=== PATIENT | male | born 1955 | race Caucasian/White ===

== ENCOUNTER 2019-02-17 17:14 | Inpatient (IN) | payer MEDICARE, OTHER ==
[2019-02-17] MEDS ORDERED: levETIRAcetam IV 500 MG in SODIUM CHLORIDE 0.9% 100 ML IVPB STA (17:39)
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
[2019-02-17] MEDS ORDERED: SODIUM CHLORIDE 0.9% 1,000 ML IV ONE (17:40)
[2019-02-17 20:30] VITALS: BMI 29.7
[2019-02-17 20:54] LABS: INR 1.8 (<1.2); Prothrombin Time 17.9 sec (9.0-12.0)
[2019-02-17] MEDS ORDERED: WARFARIN 1 MG TAB PO SCH (21:00)
[2019-02-17] MEDS ORDERED: WARFARIN 3 MG TAB PO SCH (21:00)
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
[2019-02-17 22:13] LABS: HCT 35.1 % (39.0-53.0); HGB 11.3 gm/dL (13.0-17.5); Hypochromasia Slight; MCHC 32.3 g/dL (31.0-37.0); MCV 86.7 fL (80.0-100.0); Mean Platelet Volume 7.6; Platelet Count 479 k/uL (150-450); RBC 4.05 m/uL (4.30-5.90); RDW 14.5 % (11.5-15.5); WBC 12.2 k/uL (3.8-10.6)
[2019-02-17 22:42] LABS: ALT 21 U/L (21-72); AST 23 U/L (17-59); African American GFR (CKD) >90 (>60 ml/min/1.73 sqM); Albumin 3.6 g/dL (3.5-5.0); Alkaline Phosphatase 80 U/L (38-126); Anion Gap 9 mmol/L; Blood Urea Nitrogen 12 mg/dL (9-20); Calcium 8.8 mg/dL (8.4-10.2); Carbon Dioxide 27 mmol/L (22-30); Chloride 105 mmol/L (98-107); Glucose 121 mg/dL (74-99); Potassium 3.6 mmol/L (3.5-5.1); Sodium 141 mmol/L (137-145); Total Bilirubin 0.7 mg/dL (0.2-1.3); Total Protein 6.3 g/dL (6.3-8.2)
[2019-02-17] MEDS: NITROFURANTOIN MONOHYD/M-CRYST 100 MG CAP PO SCH (23:14)
[2019-02-17] MEDS: METOPROLOL TARTRATE 25 MG TAB PO SCH (23:14)
[2019-02-17] MEDS: GABAPENTIN 100 MG CAP PO SCH (23:14)
[2019-02-18 08:15] LABS: INR 1.9 (<1.2); Prothrombin Time 18.3 sec (9.0-12.0)
[2019-02-18] MEDS: GABAPENTIN 100 MG CAP PO SCH ×2 (08:50→17:10)
[2019-02-18] MEDS: METOPROLOL TARTRATE 25 MG TAB PO SCH (08:50)
[2019-02-18] MEDS: NITROFURANTOIN MONOHYD/M-CRYST 100 MG CAP PO SCH (08:50)
[2019-02-18] MEDS ORDERED: LISINOPRIL 20 MG TAB PO SCH (09:00)
--- NOTE | 2019-02-18 13:05 | MR ---
EXAMINATION TYPE: MR angio head wo con DATE OF EXAM: 02/18/2019 COMPARISON: None HISTORY: recurrent seziures CONTRAST: None TECHNIQUE: Multiplanar multiecho imaging on a 3.0 Sandra magnet is performed through the [place]. 3-D wijz-pb-clfzae imaging is performed. Source images are reviewed on the computer in the axi al plane. Reconstructed images rotating on the computer are reviewed. FINDINGS: The internal carotid arteries bifurcate normally into A1 and M1 segments. The A2 segments are normal. Middle cerebral artery branches are normal. Anterior communicating artery is patent. The right posterior communicating artery is patent. The left posterior communicating artery is absent. Vertebrobasilar arteries within the vsjwz-sf-blfb are normal. Posterior cerebral vasculature is norm al. No suspicious aneurysm or aneurysmal dilatation is evident. No obstructions are identified. No significant flow-limiting stenosis is evident. IMPRESSIONS: 1. NORMAL MRA [place].
[2019-02-18 14:42] VITALS: BP 130/72; PULSE 71; RESP 16; TEMP 98.1
[2019-02-18] MEDS ORDERED: DIVALPROEX 500 MG TABLET.DR PO SCH (21:00)
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
== END 2019-02-18 17:31 | disposition home or self-care (01) | DRG 101 ==
LOC: EC 17:14 → 4SSUR 17:40
PROVIDERS: ADMIT Hospitalist; ATTEND Hospitalist
DX: G40.409 Other generalized epilepsy and epileptic syndromes, not intractable, without status epilepticus (principal); G82.20 Paraplegia, unspecified; T14.90XS Injury, unspecified, sequela; V89.2XXS Person injured in unspecified motor-vehicle accident, traffic, sequela; Z87.820 Personal history of traumatic brain injury; I10 Essential (primary) hypertension; Z79.01 Long term (current) use of anticoagulants; Z79.899 Other long term (current) drug therapy; Z82.49 Family history of ischemic heart disease and other diseases of the circulatory system; Z83.3 Family history of diabetes mellitus; Z86.711 Personal history of pulmonary embolism; Z86.718 Personal history of other venous thrombosis and embolism; Z87.440 Personal history of urinary (tract) infections; G62.9 Polyneuropathy, unspecified
CPT/HCPCS: 70544; 80053; 85027; 85610; 95816; 96365; 99284

== ENCOUNTER → 2019-03-17 | Outpatient (CLI) | payer MEDICARE, OTHER | END | disposition home or self-care (01) | LOC: LABWHC1 13:13 | PROVIDERS: ATTEND Psychiatry & Neurology Neurology | DX: R56.9 Unspecified convulsions (principal) | CPT/HCPCS: 36415; 80164 ==

== ENCOUNTER 2019-09-03 17:30 | Inpatient (IN) | payer MEDICARE, OTHER ==
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
[2019-09-03] MEDS ORDERED: NALOXONE 0.4 MG/ML 1 ML VIAL IV PRN (18:19)
[2019-09-03] MEDS ORDERED: HEPARIN SODIUM,PORCINE 10,000 UNIT/ML 1 ML VIAL IV ONE (18:20)
[2019-09-03] MEDS ORDERED: HEPARIN SODIUM,PORCINE 5,000 UNIT/ML 1 ML VIAL IV PRN (18:20)
[2019-09-03] MEDS ORDERED: SODIUM CHLORIDE 0.9% 1,000 ML IV SCH (18:30)
[2019-09-03] MEDS: HEPARIN SOD,PORK IN 0.45% NACL 25,000 UNIT in 0.45% NACL 1 250ML.BAG IV SCH (18:45)
[2019-09-03] MEDS ORDERED: METOPROLOL TARTRATE 25 MG TAB PO STA (19:03)
[2019-09-03 20:08] LABS: INR 2.9 (<1.2); Prothrombin Time 28.4 sec (9.0-12.0)
[2019-09-03 20:15] LABS: Partial Thromboplastin Time >200.0 sec (22.0-30.0)
[2019-09-03 20:27] LABS: HCT 43.1 % (39.0-53.0); HGB 14.1 gm/dL (13.0-17.5); MCH 29.7 pg (25.0-35.0); MCHC 32.7 g/dL (31.0-37.0); MCV 90.8 fL (80.0-100.0); Mean Platelet Volume 8.7; Platelet Count 174 k/uL (150-450); RBC 4.75 m/uL (4.30-5.90); RDW 14.2 % (11.5-15.5); WBC 8.4 k/uL (3.8-10.6)
[2019-09-03 20:51] LABS: Eosinophils # (M) 0.17 k/uL (0-0.7); Lymphocytes # (M) 2.94 k/uL (1.0-4.8); Monocytes # (M) 0.59 k/uL (0-1.0); Neutrophils % (M) 56 %; Nucleated Red Blood Cells 0 /100 WBC (0-0); Poikilocytosis (M) Present; Total Cells Counted 100
[2019-09-03 21:23] LABS: Glucose,Whole Blood 115 mg/dL (75-99)
[2019-09-03] MEDS ORDERED: ACETAMINOPHEN TAB 325 MG TAB PO PRN (23:27)
[2019-09-03] MEDS ORDERED: MAGNESIUM HYDROXIDE 2,400 MG/10 ML CUP PO PRN (23:27)
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
[2019-09-04] MEDS ORDERED: METOPROLOL TARTRATE 25 MG TAB PO SCH
[2019-09-04] MEDS ORDERED: LISINOPRIL 20 MG TAB PO SCH
[2019-09-04] MEDS: LISINOPRIL 20 MG TAB PO SCH ×2 (00:05→05:56)
[2019-09-04] MEDS: METOPROLOL TARTRATE 25 MG TAB PO SCH ×2 (00:05→07:18)
[2019-09-04] MEDS ORDERED: DIVALPROEX 500 MG TABLET.DR PO SCH (07:00)
[2019-09-04] MEDS: GABAPENTIN 100 MG CAP PO SCH ×2 (07:18→13:04)
[2019-09-04 07:20] LABS: Glucose,Whole Blood 97 mg/dL (75-99)
[2019-09-04 08:21] LABS: HCT 42.7 % (39.0-53.0); HGB 13.9 gm/dL (13.0-17.5); MCH 29.9 pg (25.0-35.0); MCHC 32.5 g/dL (31.0-37.0); MCV 91.8 fL (80.0-100.0); Mean Platelet Volume 8.4; Platelet Count 170 k/uL (150-450); RBC 4.66 m/uL (4.30-5.90); RDW 14.2 % (11.5-15.5); WBC 8.9 k/uL (3.8-10.6)
[2019-09-04 09:44] LABS: Eosinophils # (M) 0.09 k/uL (0-0.7); Lymphocytes # (M) 2.58 k/uL (1.0-4.8); Monocytes # (M) 0.89 k/uL (0-1.0); Neutrophils # (M) 5.34 k/uL (1.3-7.7); Neutrophils % (M) 60 %; Nucleated Red Blood Cells 0 /100 WBC (0-0); Total Cells Counted 100
[2019-09-04] MEDS: HEPARIN SOD,PORK IN 0.45% NACL 25,000 UNIT in 0.45% NACL 1 250ML.BAG IV SCH (10:41)
[2019-09-04 11:37] LABS: Glucose,Whole Blood 122 mg/dL (75-99)
[2019-09-04] MEDS ORDERED: hydrALAZINE HCL 25 MG TAB PO PRN (12:41)
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
[2019-09-04 14:32] VITALS: BP 156/66; PULSE 62; RESP 16; TEMP 98
[2019-09-04 15:15] LABS: INR 1.9 (<1.2); Prothrombin Time 18.6 sec (9.0-12.0)
[2019-09-04 15:33] LABS: Partial Thromboplastin Time 110.4 sec (22.0-30.0)
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
[2019-09-04] MEDS ORDERED: APIXABAN 5 MG TAB PO SCH (16:00)
[2019-09-04 16:29] LABS: Glucose,Whole Blood 95 mg/dL (75-99)
[2019-09-04] MEDS ORDERED: INSULIN ASPART (NovoLOG) 100 UNIT/ML VIAL SQ SCH (17:30)
[2019-09-04] MEDS ORDERED: WARFARIN 0.5 MG TAB PO SCH (21:00)
[2019-09-04] MEDS ORDERED: WARFARIN 3 MG TAB PO SCH (21:00)
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
== END 2019-09-04 17:50 | DRG 300 ==
LOC: EC 17:30 → 6NMEDSUR 19:39
PROVIDERS: ADMIT Internal Medicine; ATTEND Internal Medicine
DX: I82.431 Acute embolism and thrombosis of right popliteal vein (principal); D68.59 Other primary thrombophilia; G82.20 Paraplegia, unspecified; Z66 Do not resuscitate; G40.909 Epilepsy, unspecified, not intractable, without status epilepticus; I16.0 Hypertensive urgency; I10 Essential (primary) hypertension; F81.9 Developmental disorder of scholastic skills, unspecified; E11.42 Type 2 diabetes mellitus with diabetic polyneuropathy; S06.890S Other specified intracranial injury without loss of consciousness, sequela; Z79.01 Long term (current) use of anticoagulants; Z79.899 Other long term (current) drug therapy; Z82.49 Family history of ischemic heart disease and other diseases of the circulatory system; Z86.711 Personal history of pulmonary embolism; Z86.718 Personal history of other venous thrombosis and embolism; Z87.820 Personal history of traumatic brain injury; Z83.3 Family history of diabetes mellitus
CPT/HCPCS: 36415; 82272; 85025; 85610; 85730; 96365; 96366; 96376; 99285

== ENCOUNTER 2020-05-28 12:37 | Inpatient (IN) | payer MEDICARE, OTHER ==
[2020-05-28] MEDS ORDERED: NALOXONE 0.4 MG/ML 1 ML VIAL IV PRN (15:32)
--- NOTE | 2020-05-28 16:03 | XR ---
EXAMINATION TYPE: XR chest 1V portable DATE OF EXAM: 05/28/2020 COMPARISON: NONE HISTORY: Cough TECHNIQUE: Single view FINDINGS: There is no heart failure nor confluent pneumonic infiltrate. Heart size is normal. Costoph renic angles are clear. IMPRESSION: No active cardiopulmonary disease. Normal heart.
[2020-05-28 16:09] LABS: Basophils # (A) 0.2 k/uL (0-0.2); Basophils % (A) 2 %; Eosinophils % (A) 0 %; HCT 42.5 % (39.0-53.0); Lymphocytes % (A) 12 %; MCH 30.2 pg (25.0-35.0); MCHC 30.6 g/dL (31.0-37.0); MCV 98.5 fL (80.0-100.0); Mean Platelet Volume 7.8; Monocytes # (A) 0.8 k/uL (0-1.0); Monocytes % (A) 10 %; Neutrophils # (A) 5.6 k/uL (1.3-7.7); Neutrophils % (A) 72 %; Platelet Count 116 k/uL (150-450); RBC 4.31 m/uL (4.30-5.90); RDW 14.6 % (11.5-15.5); WBC 7.8 k/uL (3.8-10.6)
[2020-05-28 16:19] LABS: ALT 27 U/L (4-49); AST 46 U/L (17-59); African American GFR (CKD) >90 (>60 ml/min/1.73 sqM); Albumin 3.2 g/dL (3.5-5.0); Albumin/Globulin Ratio 1.2; Alkaline Phosphatase 51 U/L (38-126); Anion Gap 7 mmol/L; Blood Urea Nitrogen 20 mg/dL (9-20); Calcium 8.8 mg/dL (8.4-10.2); Carbon Dioxide 26 mmol/L (22-30); Chloride 103 mmol/L (98-107); Creatine Kinase 38 U/L (55-170); Globulin 2.6 g/dL; Glucose 87 mg/dL (74-99); Magnesium 1.6 mg/dL (1.6-2.3); Non-African American GFR(CKD) >90 (>60 ml/min/1.73 sqM); Potassium 4.7 mmol/L (3.5-5.1); Sodium 136 mmol/L (137-145); Total Bilirubin 0.9 mg/dL (0.2-1.3); Total Protein 5.8 g/dL (6.3-8.2)
[2020-05-28] MEDS: SODIUM CHLORIDE 0.9% 1,000 ML IV SCH (16:50)
[2020-05-28 16:58] LABS: Glucose,Whole Blood 87 mg/dL (75-99)
[2020-05-28] MEDS: INSULIN ASPART (NovoLOG) 100 UNIT/ML VIAL SQ SCH ×2 (17:01→21:41)
[2020-05-28 17:09] LABS: Appearance,Urine Cloudy (Clear); Bilirubin,Urine Negative (Negative); Blood,Urine Moderate (Negative); Calcium Oxalate Crystals,Urine Occasional /hpf; Color,Urine Yellow; Glucose,Urine (UA) Negative (Negative); Hyaline Casts,Urine 1 /lpf (0-2); Ketones,Urine 1+ (Negative); Leukocyte Esterase,Urine Moderate (Negative); Mucus,Urine Rare /hpf; Nitrite,Urine Negative (Negative); Protein,Urine 3+ (Negative); RBC,Urine >182 /hpf (0-5); Specific Gravity,Urine 1.031 (1.001-1.035); Squamous Epithelial Cell,Urine <1 /hpf (0-4); WBC,Urine 100 /hpf (0-5)
[2020-05-28] MEDS ORDERED: bisacodyL 10 MG SUPP RECTAL PRN (17:25)
[2020-05-28 18:09] LABS: C Reactive Protein 28.6 mg/L (<10.0)
--- NOTE | 2020-05-28 19:02 | CT ---
EXAMINATION TYPE: CT chest wo con DATE OF EXAM: 05/28/2020 COMPARISON: None HISTORY: Cough. CT DLP: 922.9 mGycm Automated exposure control for dose reduction was used. Images obtained from the thoracic inlet to the diaphragm with no contrast. There is some mild subsegmental atelectasis at the lung bases. There is no pleural effusion. Heart si ze is normal. There is no pericardial effusion. There is no mediastinal adenopathy. There are no hilar masses. The bony thorax is intact. There is sp urring in the thoracic spine. Sternum is intact. There is no adrenal mass. There is 2 mm calculus pos terior left kidney. There is no hydronephrosis. IMPRESSION: Mild subsegmental atelectasis. No pulmonary consolidation. Normal heart. No suspicious pulmonary mass .
[2020-05-28] MEDS: ALBUTEROL HFA INHALER INHALATION SCH (19:53)
[2020-05-28 20:26] LABS: Glucose,Whole Blood 193 mg/dL (75-99)
[2020-05-28] MEDS: FAMOTIDINE 20 MG TAB PO SCH (21:41)
[2020-05-28] MEDS: DIVALPROEX 500 MG TABLET.DR PO SCH (21:41)
[2020-05-28] MEDS: INSULIN DETEMIR (LEVEMIR) 100 UNIT/ML SYR SQ SCH (21:41)
[2020-05-28] MEDS: GABAPENTIN 100 MG CAP PO SCH (21:42)
[2020-05-28] MEDS: METOPROLOL TARTRATE 25 MG TAB PO SCH (21:42)
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
[2020-05-28 23:55] LABS: Hemoglobin A1C 5.2 % (4.0-6.0)
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
[2020-05-29 07:03] LABS: Basophils # (A) 0.1 k/uL (0-0.2); Basophils % (A) 1 %; Eosinophils % (A) 0 %; HCT 42.9 % (39.0-53.0); Lymphocytes # (A) 1.6 k/uL (1.0-4.8); Lymphocytes % (A) 20 %; MCH 31.5 pg (25.0-35.0); MCHC 32.6 g/dL (31.0-37.0); MCV 96.6 fL (80.0-100.0); Mean Platelet Volume 8.7; Monocytes # (A) 1.4 k/uL (0-1.0); Monocytes % (A) 17 %; Neutrophils # (A) 4.8 k/uL (1.3-7.7); Neutrophils % (A) 58 %; Platelet Count 151 k/uL (150-450); RBC 4.44 m/uL (4.30-5.90); RDW 14.5 % (11.5-15.5); WBC 8.3 k/uL (3.8-10.6)
[2020-05-29 07:06] LABS: Glucose,Whole Blood 75 mg/dL (75-99)
[2020-05-29] MEDS: INSULIN ASPART (NovoLOG) 100 UNIT/ML VIAL SQ SCH ×4 (07:24→21:30)
[2020-05-29] MEDS: PIOGLITAZONE 30 MG TAB PO SCH (08:14)
[2020-05-29] MEDS: DIVALPROEX 500 MG TABLET.DR PO SCH ×2 (08:14→21:28)
[2020-05-29] MEDS: ACETAMINOPHEN TAB 325 MG TAB PO PRN ×3 (08:14→23:30)
[2020-05-29] MEDS: METOPROLOL TARTRATE 25 MG TAB PO SCH ×2 (08:14→21:28)
[2020-05-29] MEDS: APIXABAN 5 MG TAB PO SCH ×2 (08:14→14:53)
[2020-05-29] MEDS: lisinopriL 20 MG TAB PO SCH (08:15)
[2020-05-29] MEDS: FAMOTIDINE 20 MG TAB PO SCH ×2 (08:20→21:28)
[2020-05-29] MEDS: GABAPENTIN 100 MG CAP PO SCH ×3 (08:20→21:28)
[2020-05-29] MEDS: ALBUTEROL HFA INHALER INHALATION SCH ×3 (08:29→19:36)
[2020-05-29 10:36] LABS: African American GFR (CKD) 109.4 (60.0-200.0); Anion Gap 12.9 mmol/L (4.00-12.00); BUN/Creat Ratio 22.5 Ratio (12.00-20.00); Calcium 9.5 mg/dL (8.7-10.3); Carbon Dioxide 25.1 mmol/L (21.6-31.8); Non-African American GFR(CKD) 94.4 (60.0-200.0); Potassium 5.1 mmol/L (3.5-5.5)
[2020-05-29 11:25] LABS: Glucose,Whole Blood 89 mg/dL (75-99)
[2020-05-29] MEDS: AZITHROMYCIN 500 MG in SODIUM CHLORIDE 0.9% 250 ML IVPB SCH (12:15)
[2020-05-29 16:43] LABS: Glucose,Whole Blood 99 mg/dL (75-99)
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
[2020-05-29 20:40] LABS: Glucose,Whole Blood 96 mg/dL (75-99)
[2020-05-29] MEDS: SODIUM CHLORIDE 0.9% 1,000 ML IV SCH (21:27)
[2020-05-29] MEDS: ASCORBIC ACID 500 MG TAB PO SCH (21:28)
[2020-05-29] MEDS: dexAMETHasone 2 MG TAB PO SCH (21:29)
[2020-05-29] MEDS: INSULIN DETEMIR (LEVEMIR) 100 UNIT/ML SYR SQ SCH (21:30)
[2020-05-29] MEDS ORDERED: REMDESIVIR (EUA) 200 MG in SODIUM CHLORIDE 0.9% 250 ML IVPB ONE (22:00)
--- NOTE | 2020-05-30 00:59 | PN ---
PROGRESS NOTE DATE OF SERVICE: 05/29/2020 REASON FOR FOLLOWUP: COVID-19 pneumonia. INTERVAL HISTORY: The patient has been spiking a fever. The patient is hemodynamically stable though requiring supplemental oxygen, currently on 4 L. No vomiting or diarrhea reported by nursing staff. Patient himself was unable to provide any history. PHYSICAL EXAMINATION: Blood pressure 139/85 with a pulse of 130, temperature 102.3. He is 95% on 4 L nasal cannula. General description is a middle-aged male lying in bed in no distress. RESPIRATORY SYSTEM: Unlabored breathing. Decreased breath sounds at the bases. ABDOMEN: Soft. EXTREMITIES: No edema of feet. LABS: Hemoglobin 14, white count 8.3. Coronavirus PCR came back positive. DIAGNOSTIC IMPRESSION AND PLAN: Patient with acute COVID-19 infection in this patient with persistent fever and need for supplemental oxygen. Patient qualified for remdesivir, which was discussed with the pharmacist who will be starting the patient on, will also add dexamethasone, continue Eliquis and zinc. Monitor clinical course closely. MMODL / IJN: [id number] /
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
[2020-05-30 06:40] LABS: HCT 44.6 % (39.0-53.0); MCH 30.3 pg (25.0-35.0); MCHC 31.3 g/dL (31.0-37.0); MCV 96.6 fL (80.0-100.0); Mean Platelet Volume 8.4; Platelet Count 129 k/uL (150-450); RBC 4.62 m/uL (4.30-5.90)
[2020-05-30 07:12] LABS: Glucose,Whole Blood 81 mg/dL (75-99)
[2020-05-30] MEDS: INSULIN ASPART (NovoLOG) 100 UNIT/ML VIAL SQ SCH ×4 (07:13→22:22)
[2020-05-30] MEDS: APIXABAN 5 MG TAB PO SCH ×2 (07:36→15:12)
[2020-05-30] MEDS: dexAMETHasone 2 MG TAB PO SCH (07:36)
[2020-05-30] MEDS: ASCORBIC ACID 500 MG TAB PO SCH ×2 (07:36→22:22)
[2020-05-30] MEDS: DIVALPROEX 500 MG TABLET.DR PO SCH ×2 (07:36→22:22)
[2020-05-30] MEDS: FAMOTIDINE 20 MG TAB PO SCH ×2 (07:36→22:22)
[2020-05-30] MEDS: CHOLECALCIFEROL 400 UNIT TAB PO SCH (07:36)
[2020-05-30] MEDS: ZINC SULFATE 220 MG CAP PO SCH (07:37)
[2020-05-30] MEDS: GABAPENTIN 100 MG CAP PO SCH ×3 (07:37→22:23)
[2020-05-30] MEDS: PIOGLITAZONE 30 MG TAB PO SCH (07:37)
[2020-05-30] MEDS: METOPROLOL TARTRATE 25 MG TAB PO SCH ×2 (07:37→22:22)
[2020-05-30] MEDS: lisinopriL 20 MG TAB PO SCH (07:37)
[2020-05-30] MEDS: ALBUTEROL HFA INHALER INHALATION SCH ×3 (07:45→20:41)
[2020-05-30] MEDS ORDERED: guaiFENesin-DM 100-10MG/5ML 10 ML CUP PO PRN (07:52)
[2020-05-30] MEDS ORDERED: FUROSEMIDE 10 MG/ML 4 ML VIAL IV STA (08:07)
[2020-05-30 08:41] LABS: ABG Base Excess -0.7 mmol/L; ABG HCO3 24 mmol/L (21-25); ABG Oxygen Saturation 92.5 % (94-97); ABG PCO2 36 mmHg (35-45); ABG PH 7.43 (7.35-7.45); ABG PO2 60 mmHg (83-108); ABG TCO2 25 mmol/L (19-24); Allen Test Performed? Yes
--- NOTE | 2020-05-30 09:04 | XR ---
EXAMINATION TYPE: XR chest 1V portable DATE OF EXAM: 05/30/2020 Comparison: 05/28/2020 Clinical History: 65-year-old male short of breath Findings: Heart normal size. Aorta within normal limits. Breathing motion artifact without sadia consolidation or pleural effusion. Partially visualized posterior fusion hardware in the lumbar spine. Impression: Breathing motion artifact. No definite acute process.
[2020-05-30 09:08] LABS: African American GFR (CKD) 109.4 (60.0-200.0); Calcium 8.9 mg/dL (8.7-10.3); Non-African American GFR(CKD) 94.4 (60.0-200.0); Potassium 4.2 mmol/L (3.5-5.5)
[2020-05-30 09:10] LABS: Band Neutrophils % 17 %; Metamyelocytes % 1 %; Myelocytes % 1 %; Neutrophils % (M) 55 %; Nucleated Red Blood Cells 0 /100 WBC (0-0); Total Cells Counted 200
[2020-05-30 09:14] LABS: Toxic Vacuolation Present
[2020-05-30] MEDS: ACETAMINOPHEN IV (For NPO) 1,000 MG in EMPTY BAG 1 BAG IVPB PRN ×2 (10:35→20:16)
[2020-05-30] MEDS ORDERED: LORazepam 2 MG/ML INJ ONE (10:46)
[2020-05-30] MEDS ORDERED: LORazepam 2 MG/ML INJ IV PRN (11:04)
[2020-05-30] MEDS: AZITHROMYCIN 500 MG in SODIUM CHLORIDE 0.9% 250 ML IVPB SCH (11:35)
[2020-05-30 11:38] LABS: Glucose,Whole Blood 122 mg/dL (75-99)
--- NOTE | 2020-05-30 14:20 | P.PN ---
Subjective 65-year-old male was admitted for Covid 19 pneumonia patient was really status it has worsened and patient is presently on BiPAP with patient is presently on dexamethasone and Remdesevir, patient did not do well or year today in spite of for BiPAP. Patient is DO NOT RESUSCITATE and family doesn't want him to be intubated. Had a lengthy discussion of the family. If his respiratory status worsens plan is to make him comfort care and not to go in the Route of intubation. Family requested that everything to be done to make patient better except for intubation or CPR. Patient ABG showed hypoxic respiratory failure pH is within normal limits. Review of systems: Unable to obtain as patient is on BiPAP. All inpatient medications were reviewed and appropriate changes in these medications as dictated in the interval history and assessment and plan. Objective - Vital Signs Vital signs: Vital Signs Temp 102.3 F H 05/30/20 01:45 Pulse 87 05/30/20 01:45 Resp 20 05/30/20 01:45 BP 144/66 05/30/20 01:45 Pulse Ox 96 05/30/20 01:45 Intake & Output 05/29/20 05/30/20 05/30/20 18:59 06:59 18:59 Other: Voiding Method Indwelling Catheter Incontinent Indwelling Catheter # Voids 1 2 - Exam PHYSICAL EXAMINATION: GENERAL: The patient is alert and oriented x3, not in any acute distress. Well developed, well nourished. HEENT: Pupils are round and equally reacting to light. EOMI. No scleral icterus. No conjunctival pallor. Normocephalic, atraumatic. No pharyngeal erythema. No thyromegaly. CARDIOVASCULAR: S1 and S2 present. No murmurs, rubs, or gallops. PULMONARY: Diffuse bilateral rhonchi ABDOMEN: Soft, nontender, nondistended, normoactive bowel sounds. No palpable organomegaly. MUSCULOSKELETAL: No joint swelling or deformity. EXTREMITIES: No cyanosis, clubbing, or pedal edema. NEUROLOGICAL: Gross neurological examination did not reveal any focal deficits. SKIN: No rashes. Note: Because of COVID 19 isolation, some of the history and physical exam findings or indirect and obtained from nursing staff, and other physician examinations to avoid unnecessary contact with the patient. - Labs CBC & Chem 7: 05/30/20 05:45 05/30/20 05:45 Labs: Abnormal Lab Results - Last 24 Hours (Table) 05/28/20 05/30/20 05/30/20 Range/Units 16:40 05:45 05:45 Plt Count 129 L (150-450) k/uL Monocytes # (Manual) 1.40 H (0-1.0) k/uL Metamyelocytes # (Man) 0.10 H (0) k/uL Myelocytes # (Manual) 0.10 H (0) k/uL ABG pO2 (83-108) mmHg ABG Total CO2 (19-24) mmol/L ABG O2 Saturation (94-97) % Anion Gap 13.00 H (4.00-12.00) mmol/L POC Glucose (mg/dL) (75-99) mg/dL Coronavirus (PCR) Detected H (Not Detected) 05/30/20 05/30/20 Range/Units 08:37 11:36 Plt Count (150-450) k/uL Monocytes # (Manual) (0-1.0) k/uL Metamyelocytes # (Man) (0) k/uL Myelocytes # (Manual) (0) k/uL ABG pO2 60 L (83-108) mmHg ABG Total CO2 25 H (19-24) mmol/L ABG O2 Saturation 92.5 L (94-97) % Anion Gap (4.00-12.00) mmol/L POC Glucose (mg/dL) 122 H (75-99) mg/dL Coronavirus (PCR) (Not Detected) Microbiology - Last 24 Hours (Table) 05/28/20 18:10 Blood Culture - Preliminary Blood No Growth after 24 hours 05/28/20 16:40 Urine Culture - Final Urine,Catheterized Assessment and Plan Plan: -Acute hypoxic respiratory failure presently on BiPAP secondary to Covid 19 pneumonia patient will be continued on steroids and antivirals as mentioned above. -Hypovolemic hyponatremia expected to improve with IV fluids -History of PE in the past patient is on Eliquis which will be continued -History of seizure disorder -Hypertension -No evidence of urinary tract infection she does have abnormal UA but doesn't have any symptoms -Type 2 diabetes mellitus with the diabetic peripheral neuropathy. Patient's blood sugars are expected to be evaluated because of systems treatment sliding scale insulin patient will hypoglycemic agents hold
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
[2020-05-30 16:20] LABS: Glucose,Whole Blood 106 mg/dL (75-99)
[2020-05-30] MEDS: SODIUM CHLORIDE 0.9% 1,000 ML IV SCH (16:41)
[2020-05-30 20:21] LABS: Glucose,Whole Blood 88 mg/dL (75-99)
[2020-05-30] MEDS: REMDESIVIR (EUA) 100 MG in SODIUM CHLORIDE 0.9% 250 ML IVPB SCH (21:34)
[2020-05-30] MEDS: INSULIN DETEMIR (LEVEMIR) 100 UNIT/ML SYR SQ SCH (22:22)
--- NOTE | 2020-05-30 23:05 | PN ---
PROGRESS NOTE DATE OF SERVICE: 05/30/2020 REASON FOR FOLLOWUP: COVID-19 pneumonia. INTERVAL HISTORY: The patient did have worsening respiratory status this morning and required BiPAP placement. The patient is hemodynamically stable, not on any pressor support. He is nonverbal. No vomiting or diarrhea has been reported. PHYSICAL EXAMINATION: Blood pressure 126/83 with a pulse of 107, temperature 99. He is 99% on CPAP. General description is a middle-aged male lying in bed in no distress. RESPIRATORY SYSTEM: Unlabored breathing with decreased intensity of breath sounds. No wheeze. HEART: S1, S2. Regular rate and rhythm. ABDOMEN: Soft. No tenderness. LABS: Hemoglobin is 14, white count 10.0. BUN of 6, creatinine 0.8. DIAGNOSTIC IMPRESSION AND PLAN: Patient with acute COVID-19 pneumonia in this patient currently covered with remdesivir, Eliquis, Zithromax and dexamethasone. To continue and follow the patient's clinical course closely. Family at the bedside. Their questions were answered. MMODL / IJN: [id number] /
[2020-05-31 06:49] LABS: HGB 14.9 gm/dL (13.0-17.5); MCH 31.4 pg (25.0-35.0); MCHC 32.3 g/dL (31.0-37.0); MCV 97.2 fL (80.0-100.0); Mean Platelet Volume 8.1; Platelet Count 141 k/uL (150-450); RBC 4.73 m/uL (4.30-5.90); RDW 14.8 % (11.5-15.5); WBC 15.5 k/uL (3.8-10.6)
[2020-05-31 07:18] LABS: Band Neutrophils % 47 %; Lymphocytes # (M) 1.24 k/uL (1.0-4.8); Monocytes # (M) 1.55 k/uL (0-1.0); Neutrophils % (M) 35 %; Nucleated Red Blood Cells 0 /100 WBC (0-0); Total Cells Counted 100
[2020-05-31 07:32] LABS: Glucose,Whole Blood 88 mg/dL (75-99)
[2020-05-31] MEDS: CHOLECALCIFEROL 400 UNIT TAB PO SCH (07:36)
[2020-05-31] MEDS: ASCORBIC ACID 500 MG TAB PO SCH ×2 (07:36→22:05)
[2020-05-31] MEDS: GABAPENTIN 100 MG CAP PO SCH ×3 (07:36→22:06)
[2020-05-31] MEDS: INSULIN ASPART (NovoLOG) 100 UNIT/ML VIAL SQ SCH ×4 (07:36→22:05)
[2020-05-31] MEDS: APIXABAN 5 MG TAB PO SCH ×2 (07:36→16:41)
[2020-05-31] MEDS: DIVALPROEX 500 MG TABLET.DR PO SCH ×2 (07:36→22:05)
[2020-05-31] MEDS: FAMOTIDINE 20 MG TAB PO SCH ×2 (07:36→22:05)
[2020-05-31] MEDS: ZINC SULFATE 220 MG CAP PO SCH (07:37)
[2020-05-31] MEDS: METOPROLOL TARTRATE 25 MG TAB PO SCH ×2 (07:37→22:05)
[2020-05-31] MEDS: lisinopriL 20 MG TAB PO SCH (07:37)
[2020-05-31] MEDS: ALBUTEROL HFA INHALER INHALATION SCH ×3 (07:53→19:22)
[2020-05-31] MEDS: DEXAMETHASONE SOD PHOSPHATE 10 MG/ML 1 ML VIAL IV SCH (07:56)
--- NOTE | 2020-05-31 08:19 | P.PN ---
Subjective 65-year-old male was admitted for Covid 19 pneumonia patient was really status it has worsened and patient is presently on BiPAP with patient is presently on dexamethasone and Remdesevir, patient did not do well or year today in spite of for BiPAP. Patient is DO NOT RESUSCITATE and family doesn't want him to be intubated. Had a lengthy discussion of the family. If his respiratory status worsens plan is to make him comfort care and not to go in the Route of intubation. Family requested that everything to be done to make patient better except for intubation or CPR. Patient ABG showed hypoxic respiratory failure pH is within normal limits. 05/31/2020 Patient is doing marginally well afebrile remains on BiPAP. Review of systems: Unable to obtain as patient is on BiPAP. All inpatient medications were reviewed and appropriate changes in these medications as dictated in the interval history and assessment and plan. Objective - Vital Signs Vital signs: Vital Signs Temp 98.6 F 05/31/20 00:23 Pulse 108 H 05/31/20 00:23 Resp 18 05/31/20 00:23 BP 107/67 05/31/20 00:23 Pulse Ox 95 05/31/20 00:23 Intake & Output 05/30/20 05/31/20 05/31/20 18:59 06:59 18:59 Intake Total 250 Output Total 600 850 Balance -600 -600 Intake: Intake, IV Titration 250 Amount Remdesivir (Eua) 100 mg 250 In Sodium Chloride 0.9% 250 ml @ 250 mls/hr IVPB Q24H [facility] Rx#:[id number] Output: Urine 600 850 Other: Voiding Method Indwelling Catheter Indwelling Catheter # Bowel Movements 1 - Exam PHYSICAL EXAMINATION: GENERAL: She is on BiPAP response to verbal stimuli HEENT: Pupils are round and equally reacting to light. EOMI. No scleral icterus. No conjunctival pallor. Normocephalic, atraumatic. No pharyngeal erythema. No thyromegaly. CARDIOVASCULAR: S1 and S2 present. No murmurs, rubs, or gallops. PULMONARY: Diffuse bilateral rhonchi ABDOMEN: Soft, nontender, nondistended, normoactive bowel sounds. No palpable organomegaly. MUSCULOSKELETAL: No joint swelling or deformity. EXTREMITIES: No cyanosis, clubbing, or pedal edema. NEUROLOGICAL: Gross neurological examination did not reveal any focal deficits. SKIN: No rashes. Note: Because of COVID 19 isolation, some of the history and physical exam findings or indirect and obtained from nursing staff, and other physician examinations to avoid unnecessary contact with the patient. - Labs CBC & Chem 7: 05/31/20 06:20 05/30/20 05:45 Labs: Abnormal Lab Results - Last 24 Hours (Table) 05/28/20 05/30/20 05/30/20 Range/Units 16:40 05:45 05:45 WBC (3.8-10.6) k/uL Plt Count (150-450) k/uL Neutrophils # (Manual) (1.3-7.7) k/uL Monocytes # (Manual) 1.40 H (0-1.0) k/uL Metamyelocytes # (Man) 0.10 H (0) k/uL Myelocytes # (Manual) 0.10 H (0) k/uL ABG pO2 (83-108) mmHg ABG Total CO2 (19-24) mmol/L ABG O2 Saturation (94-97) % Anion Gap 13.00 H (4.00-12.00) mmol/L POC Glucose (mg/dL) (75-99) mg/dL Coronavirus (PCR) Detected H (Not Detected) 05/30/20 05/30/20 05/30/20 Range/Units 08:37 11:36 16:18 WBC (3.8-10.6) k/uL Plt Count (150-450) k/uL Neutrophils # (Manual) (1.3-7.7) k/uL Monocytes # (Manual) (0-1.0) k/uL Metamyelocytes # (Man) (0) k/uL Myelocytes # (Manual) (0) k/uL ABG pO2 60 L (83-108) mmHg ABG Total CO2 25 H (19-24) mmol/L ABG O2 Saturation 92.5 L (94-97) % Anion Gap (4.00-12.00) mmol/L POC Glucose (mg/dL) 122 H 106 H (75-99) mg/dL Coronavirus (PCR) (Not Detected) 05/31/20 Range/Units 06:20 WBC 15.5 H (3.8-10.6) k/uL Plt Count 141 L (150-450) k/uL Neutrophils # (Manual) 12.70 H (1.3-7.7) k/uL Monocytes # (Manual) 1.55 H (0-1.0) k/uL Metamyelocytes # (Man) (0) k/uL Myelocytes # (Manual) (0) k/uL ABG pO2 (83-108) mmHg ABG Total CO2 (19-24) mmol/L ABG O2 Saturation (94-97) % Anion Gap (4.00-12.00) mmol/L POC Glucose (mg/dL) (75-99) mg/dL Coronavirus (PCR) (Not Detected) Microbiology - Last 24 Hours (Table) 05/28/20 18:10 Blood Culture - Preliminary Blood No Growth after 48 hours Assessment and Plan Plan: -Acute hypoxic respiratory failure presently on BiPAP secondary to Covid 19 pneumonia patient will be continued on steroids and antivirals as mentioned above. -Hypovolemic hyponatremia improved and did not have any basic metabolic profile available from today -History of PE in the past patient is on Eliquis which will be continued -History of seizure disorder -Hypertension: Lisinopril will be held temporarily as his blood pressures are low normal at this time -No evidence of urinary tract infection she does have abnormal UA but doesn't have any symptoms -Type 2 diabetes mellitus with the diabetic peripheral neuropathy. Patient's blood sugars are expected to be evaluated because of systems treatment sliding scale insulin patient will hypoglycemic agents hold
[2020-05-31 09:28] LABS: African American GFR (CKD) 61.1 (60.0-200.0); Anion Gap 13.3 mmol/L (4.00-12.00); BUN/Creat Ratio 21.43 Ratio (12.00-20.00); Calcium 9.3 mg/dL (8.7-10.3); Carbon Dioxide 27.7 mmol/L (21.6-31.8); Non-African American GFR(CKD) 52.7 (60.0-200.0); Potassium 3.7 mmol/L (3.5-5.5)
[2020-05-31] MEDS: AZITHROMYCIN 500 MG TAB PO SCH (11:04)
[2020-05-31 12:25] LABS: Glucose,Whole Blood 91 mg/dL (75-99)
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
[2020-05-31 17:23] LABS: Glucose,Whole Blood 112 mg/dL (75-99)
[2020-05-31] MEDS: SODIUM CHLORIDE 0.9% 1,000 ML IV SCH (17:38)
[2020-05-31 19:58] LABS: Glucose,Whole Blood 101 mg/dL (75-99)
[2020-05-31] MEDS: REMDESIVIR (EUA) 100 MG in SODIUM CHLORIDE 0.9% 250 ML IVPB SCH (22:04)
[2020-05-31] MEDS: INSULIN DETEMIR (LEVEMIR) 100 UNIT/ML SYR SQ SCH (22:05)
[2020-06-01 07:19] LABS: HCT 38.7 % (39.0-53.0); HGB 12.5 gm/dL (13.0-17.5); MCH 31.4 pg (25.0-35.0); MCHC 32.4 g/dL (31.0-37.0); Mean Platelet Volume 8.5; Platelet Count 125 k/uL (150-450); RBC 3.98 m/uL (4.30-5.90); RDW 14.8 % (11.5-15.5); WBC 12.1 k/uL (3.8-10.6)
[2020-06-01 08:00] LABS: Glucose,Whole Blood 90 mg/dL (75-99)
[2020-06-01] MEDS: DEXAMETHASONE SOD PHOSPHATE 10 MG/ML 1 ML VIAL IV SCH (08:36)
[2020-06-01] MEDS: INSULIN ASPART (NovoLOG) 100 UNIT/ML VIAL SQ SCH ×4 (08:37→20:36)
[2020-06-01] MEDS: APIXABAN 5 MG TAB PO SCH ×2 (08:37→16:28)
[2020-06-01] MEDS: ZINC SULFATE 220 MG CAP PO SCH (08:38)
[2020-06-01] MEDS: DIVALPROEX 500 MG TABLET.DR PO SCH ×2 (08:38→20:36)
[2020-06-01] MEDS: ASCORBIC ACID 500 MG TAB PO SCH ×2 (08:38→20:36)
[2020-06-01] MEDS: GABAPENTIN 100 MG CAP PO SCH ×3 (08:38→20:37)
[2020-06-01] MEDS: CHOLECALCIFEROL 400 UNIT TAB PO SCH (08:38)
[2020-06-01] MEDS: FAMOTIDINE 20 MG TAB PO SCH ×2 (08:38→20:36)
[2020-06-01] MEDS: METOPROLOL TARTRATE 25 MG TAB PO SCH ×2 (08:38→20:36)
[2020-06-01] MEDS: ALBUTEROL HFA INHALER INHALATION SCH ×3 (09:44→20:36)
--- NOTE | 2020-06-01 11:55 | P.PN ---
Subjective 65-year-old male was admitted for Covid 19 pneumonia patient was really status it has worsened and patient is presently on BiPAP with patient is presently on dexamethasone and Remdesevir, patient did not do well or year today in spite of for BiPAP. Patient is DO NOT RESUSCITATE and family doesn't want him to be intubated. Had a lengthy discussion of the family. If his respiratory status worsens plan is to make him comfort care and not to go in the Route of intubation. Family requested that everything to be done to make patient better except for intubation or CPR. Patient ABG showed hypoxic respiratory failure pH is within normal limits. 05/31/2020 Patient is doing marginally well afebrile remains on BiPAP. 06/01/2020 Patient is clinically doing well patient guards and requirements have come down patient is presently on 10 L of oxygen today. Still has some rhonchi bilaterally Review of systems: Unable to obtain as patient is on BiPAP. All inpatient medications were reviewed and appropriate changes in these medications as dictated in the interval history and assessment and plan. Objective - Vital Signs Vital signs: Vital Signs Temp 97.5 F L 06/01/20 07:46 Pulse 74 06/01/20 07:46 Resp 17 06/01/20 07:46 BP 123/78 06/01/20 07:46 Pulse Ox 98 06/01/20 07:46 Intake & Output 05/31/20 06/01/20 06/01/20 18:59 06:59 18:59 Intake Total 250 Output Total 700 Balance -450 Intake: Intake, IV Titration 250 Amount Remdesivir (Eua) 100 mg 250 In Sodium Chloride 0.9% 250 ml @ 250 mls/hr IVPB Q24H [facility] Rx#:[id number] Output: Urine 700 Other: Voiding Method Indwelling Catheter # Bowel Movements 1 1 - Exam PHYSICAL EXAMINATION: GENERAL: She is on BiPAP response to verbal stimuli HEENT: Pupils are round and equally reacting to light. EOMI. No scleral icterus. No conjunctival pallor. Normocephalic, atraumatic. No pharyngeal erythema. No thyromegaly. CARDIOVASCULAR: S1 and S2 present. No murmurs, rubs, or gallops. PULMONARY: bilateral rhonchi improved compared to yesterday. ABDOMEN: Soft, nontender, nondistended, normoactive bowel sounds. No palpable organomegaly. MUSCULOSKELETAL: No joint swelling or deformity. EXTREMITIES: No cyanosis, clubbing, or pedal edema. NEUROLOGICAL: Gross neurological examination did not reveal any focal deficits. SKIN: No rashes. Note: Because of COVID 19 isolation, some of the history and physical exam findings or indirect and obtained from nursing staff, and other physician examinations to avoid unnecessary contact with the patient. - Labs CBC & Chem 7: 06/01/20 07:00 05/31/20 06:20 Labs: Abnormal Lab Results - Last 24 Hours (Table) 05/31/20 05/31/20 06/01/20 Range/Units 17:21 19:56 07:00 WBC 12.1 H (3.8-10.6) k/uL RBC 3.98 L (4.30-5.90) m/uL Hgb 12.5 L (13.0-17.5) gm/dL Hct 38.7 L (39.0-53.0) % Plt Count 125 L (150-450) k/uL POC Glucose (mg/dL) 112 H 101 H (75-99) mg/dL Microbiology - Last 24 Hours (Table) 05/28/20 18:10 Blood Culture - Preliminary Blood No Growth after 72 hours Assessment and Plan Plan: -Acute hypoxic respiratory failure presently on BiPAP secondary to Covid 19 pneumonia patient will be continued on steroids and antivirals as mentioned above. -Hypovolemic hyponatremia resolved -History of PE in the past patient is on Eliquis which will be continued -History of seizure disorder -Hypertension: Lisinopril will be held temporarily as his blood pressures are low normal at this time -No evidence of urinary tract infection she does have abnormal UA but doesn't have any symptoms -Type 2 diabetes mellitus with the diabetic peripheral neuropathy. Patient's blood sugars are expected to be evaluated because of systems treatment sliding scale insulin patient will hypoglycemic agents hold
[2020-06-01 11:57] LABS: African American GFR (CKD) 109.4 (60.0-200.0); Anion Gap 10.8 mmol/L (4.00-12.00); BUN/Creat Ratio 47.5 Ratio (12.00-20.00); Calcium 9.3 mg/dL (8.7-10.3); Carbon Dioxide 29.2 mmol/L (21.6-31.8); Non-African American GFR(CKD) 94.4 (60.0-200.0); Potassium 3.8 mmol/L (3.5-5.5)
[2020-06-01] MEDS: SODIUM CHLORIDE 0.9% 1,000 ML IV SCH (12:26)
[2020-06-01] MEDS: AZITHROMYCIN 500 MG TAB PO SCH (12:27)
[2020-06-01 12:41] LABS: Glucose,Whole Blood 167 mg/dL (75-99)
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
[2020-06-01 17:23] LABS: Glucose,Whole Blood 209 mg/dL (75-99)
[2020-06-01 20:30] LABS: Glucose,Whole Blood 182 mg/dL (75-99)
[2020-06-01] MEDS: INSULIN DETEMIR (LEVEMIR) 100 UNIT/ML SYR SQ SCH (20:36)
[2020-06-01] MEDS: REMDESIVIR (EUA) 100 MG in SODIUM CHLORIDE 0.9% 250 ML IVPB SCH (21:21)
[2020-06-02 07:30] LABS: Glucose,Whole Blood 83 mg/dL (75-99)
[2020-06-02] MEDS: ALBUTEROL HFA INHALER INHALATION SCH ×3 (07:30→20:16)
--- NOTE | 2020-06-02 07:52 | XR ---
EXAMINATION TYPE: XR chest 1V portable DATE OF EXAM: 06/02/2020 Comparison: 05/30/2020 Clinical History: 65-year-old male COVID pneumonia Findings: Low lung volumes with crowding of vascular markings. Heart upper limits of normal in size. New patchy left basilar opacity. No sizable effusion. Partially visualized posterior lumbar fusion hardware. Impression: Hypoventilatory changes but with new patchy left basilar infiltrate.
[2020-06-02] MEDS: INSULIN ASPART (NovoLOG) 100 UNIT/ML VIAL SQ SCH ×4 (08:21→20:47)
[2020-06-02] MEDS: METOPROLOL TARTRATE 25 MG TAB PO SCH ×2 (08:35→20:48)
[2020-06-02] MEDS: CHOLECALCIFEROL 400 UNIT TAB PO SCH (08:35)
[2020-06-02] MEDS: ZINC SULFATE 220 MG CAP PO SCH (08:35)
[2020-06-02] MEDS: DIVALPROEX 500 MG TABLET.DR PO SCH ×2 (08:35→20:48)
[2020-06-02] MEDS: FAMOTIDINE 20 MG TAB PO SCH ×2 (08:35→20:48)
[2020-06-02] MEDS: ASCORBIC ACID 500 MG TAB PO SCH ×2 (08:35→20:48)
[2020-06-02] MEDS: APIXABAN 5 MG TAB PO SCH ×2 (08:35→20:48)
[2020-06-02] MEDS: GABAPENTIN 100 MG CAP PO SCH ×3 (08:35→20:48)
[2020-06-02] MEDS: DEXAMETHASONE SOD PHOSPHATE 10 MG/ML 1 ML VIAL IV SCH (08:35)
[2020-06-02 11:38] LABS: Glucose,Whole Blood 167 mg/dL (75-99)
[2020-06-02] MEDS: AZITHROMYCIN 500 MG TAB PO SCH (12:14)
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
[2020-06-02 14:08] VITALS: BMI 32.8
[2020-06-02] MEDS: SODIUM CHLORIDE 0.9% 1,000 ML IV SCH (15:04)
--- NOTE | 2020-06-02 16:05 | P.PN ---
Subjective 65-year-old male was admitted for Covid 19 pneumonia patient was really status it has worsened and patient is presently on BiPAP with patient is presently on dexamethasone and Remdesevir, patient did not do well or year today in spite of for BiPAP. Patient is DO NOT RESUSCITATE and family doesn't want him to be intubated. Had a lengthy discussion of the family. If his respiratory status worsens plan is to make him comfort care and not to go in the Route of intubation. Family requested that everything to be done to make patient better except for intubation or CPR. Patient ABG showed hypoxic respiratory failure pH is within normal limits. 05/31/2020 Patient is doing marginally well afebrile remains on BiPAP. 06/01/2020 Patient is clinically doing well patient guards and requirements have come down patient is presently on 10 L of oxygen today. Still has some rhonchi bilaterally 06/02/2020 Patient has significant improvement in respiratory status presently on 10 L of oxygen patient had a repeat chest x-ray which is showing bilateral infiltrate in the lower lobes. Review of systems: Unable to obtain as patient is on BiPAP. All inpatient medications were reviewed and appropriate changes in these medications as dictated in the interval history and assessment and plan. Objective - Vital Signs Vital signs: Vital Signs Temp 98.1 F 06/02/20 15:00 Pulse 49 L 06/02/20 15:00 Resp 20 06/02/20 15:00 BP 124/73 06/02/20 15:00 Pulse Ox 95 06/02/20 15:00 Intake & Output 06/01/20 06/02/20 06/02/20 18:59 06:59 18:59 Intake Total 160 100 600 Output Total 375 Balance 160 -275 600 Weight 95 kg Intake: IV 160 Sodium Chloride 0.9% 1, 160 000 ml @ 20 mls/hr IV . Q24H [facility] Rx#:[id number] Intake, IV Titration 160 Amount Sodium Chloride 0.9% 1, 160 000 ml @ 20 mls/hr IV . Q24H [facility] Rx#:[id number] Oral 100 440 Output: Urine 375 Other: Voiding Method Indwelling Catheter Indwelling Catheter Indwelling Catheter - Exam PHYSICAL EXAMINATION: GENERAL: She is on BiPAP response to verbal stimuli HEENT: Pupils are round and equally reacting to light. EOMI. No scleral icterus. No conjunctival pallor. Normocephalic, atraumatic. No pharyngeal erythema. No thyromegaly. CARDIOVASCULAR: S1 and S2 present. No murmurs, rubs, or gallops. PULMONARY: bilateral rhonchi improved compared to yesterday. ABDOMEN: Soft, nontender, nondistended, normoactive bowel sounds. No palpable organomegaly. MUSCULOSKELETAL: No joint swelling or deformity. EXTREMITIES: No cyanosis, clubbing, or pedal edema. NEUROLOGICAL: Gross neurological examination did not reveal any focal deficits. SKIN: No rashes. Note: Because of COVID 19 isolation, some of the history and physical exam findings or indirect and obtained from nursing staff, and other physician examinations to avoid unnecessary contact with the patient. - Labs CBC & Chem 7: 06/01/20 07:00 06/01/20 07:00 Labs: Abnormal Lab Results - Last 24 Hours (Table) 06/01/20 06/01/20 06/01/20 Range/Units 15:45 17:20 20:28 POC Glucose (mg/dL) 209 H 182 H (75-99) mg/dL C-Reactive Protein 19.8 H (0.0-0.8) mg/dL 06/02/20 06/02/20 Range/Units 06:29 11:35 POC Glucose (mg/dL) 167 H (75-99) mg/dL C-Reactive Protein 13.7 H (0.0-0.8) mg/dL Microbiology - Last 24 Hours (Table) 05/28/20 18:10 Blood Culture - Preliminary Blood No Growth after 96 hours Assessment and Plan Plan: -Acute hypoxic respiratory failure presently on BiPAP secondary to Covid 19 pneumonia patient will be continued on steroids and antivirals as mentioned above. -Hypovolemic hyponatremia resolved -History of PE in the past patient is on Eliquis which will be continued -History of seizure disorder -Hypertension: Lisinopril is being held and blood pressure is within normal limits. -No evidence of urinary tract infection she does have abnormal UA but doesn't have any symptoms -Type 2 diabetes mellitus with the diabetic peripheral neuropathy. Patient's blood sugars are expected to be evaluated because of systems treatment sliding scale insulin patient will hypoglycemic agents hold
[2020-06-02 17:04] LABS: Glucose,Whole Blood 260 mg/dL (75-99)
[2020-06-02 20:36] LABS: Glucose,Whole Blood 209 mg/dL (75-99)
[2020-06-02] MEDS: INSULIN DETEMIR (LEVEMIR) 100 UNIT/ML SYR SQ SCH (20:47)
[2020-06-02] MEDS: REMDESIVIR (EUA) 100 MG in SODIUM CHLORIDE 0.9% 250 ML IVPB SCH (22:41)
[2020-06-03 07:15] LABS: Glucose,Whole Blood 105 mg/dL (75-99)
[2020-06-03] MEDS: INSULIN ASPART (NovoLOG) 100 UNIT/ML VIAL SQ SCH ×4 (07:21→21:10)
[2020-06-03] MEDS: ALBUTEROL HFA INHALER INHALATION SCH ×3 (08:12→20:01)
[2020-06-03] MEDS: FAMOTIDINE 20 MG TAB PO SCH ×2 (08:32→21:09)
[2020-06-03] MEDS: DIVALPROEX 500 MG TABLET.DR PO SCH ×2 (08:32→21:10)
[2020-06-03] MEDS: ASCORBIC ACID 500 MG TAB PO SCH ×2 (08:32→21:09)
[2020-06-03] MEDS: ZINC SULFATE 220 MG CAP PO SCH (08:32)
[2020-06-03] MEDS: METOPROLOL TARTRATE 25 MG TAB PO SCH ×2 (08:33→21:10)
[2020-06-03] MEDS: GABAPENTIN 100 MG CAP PO SCH ×3 (08:33→21:10)
[2020-06-03] MEDS: APIXABAN 5 MG TAB PO SCH ×2 (08:33→21:10)
[2020-06-03] MEDS: CHOLECALCIFEROL 400 UNIT TAB PO SCH (08:33)
[2020-06-03] MEDS: DEXAMETHASONE SOD PHOSPHATE 10 MG/ML 1 ML VIAL IV SCH (08:33)
[2020-06-03 11:27] LABS: Glucose,Whole Blood 219 mg/dL (75-99)
[2020-06-03] MEDS: AZITHROMYCIN 500 MG TAB PO SCH (12:19)
[2020-06-03] MEDS: SODIUM CHLORIDE 0.9% 1,000 ML IV SCH (12:36)
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
--- NOTE | 2020-06-03 15:52 | P.PN ---
Subjective Progress Note Date: 06/03/20 65-year-old male was admitted for Covid 19 pneumonia patient was really status it has worsened and patient is presently on BiPAP with patient is presently on dexamethasone and Remdesevir, patient did not do well or year today in spite of for BiPAP. Patient is DO NOT RESUSCITATE and family doesn't want him to be intubated. Had a lengthy discussion of the family. If his respiratory status worsens plan is to make him comfort care and not to go in the Route of intubation. Family requested that everything to be done to make patient better except for intubation or CPR. Patient ABG showed hypoxic respiratory failure pH is within normal limits. 05/31/2020 Patient is doing marginally well afebrile remains on BiPAP. 06/01/2020 Patient is clinically doing well patient guards and requirements have come down patient is presently on 10 L of oxygen today. Still has some rhonchi bilaterally 06/02/2020 Patient has significant improvement in respiratory status presently on 10 L of oxygen patient had a repeat chest x-ray which is showing bilateral infiltrate in the lower lobes. 06/03/2020 Patient remains on 10 L high flow nasal cannula, saturating in the 90s, does not appear in any acute distress. Continues treatment with REM disappear, his course of Decadron. No fever, hemodynamically stable. Review of systems: Review Of Systems: Constitutional: Denied any fatigue denied any fever. Cardio vascular: denied any chest pain, palpitations Gastrointestinal denied any nausea vomiting Pulmonary: Cough, Neurologic denied any new focal deficits All inpatient medications were reviewed and appropriate changes in these medications as dictated in the interval history and assessment and plan. All inpatient medications were reviewed and appropriate changes in these medications as dictated in the interval history and assement and plan. Objective - Vital Signs Vital signs: Vital Signs Temp 98.3 F 06/03/20 14:11 Pulse 63 06/03/20 14:11 Resp 18 06/03/20 14:11 BP 132/78 06/03/20 14:11 Pulse Ox 97 06/03/20 14:11 Intake & Output 06/02/20 06/03/20 06/03/20 18:59 06:59 18:59 Intake Total 600 1380 400 Output Total 750 Balance 600 1380 -350 Weight 95 kg Intake: IV 280 Sodium Chloride 0.9% 1, 280 000 ml @ 20 mls/hr IV . Q24H [facility] Rx#:[id number] Intake, IV Titration 160 500 Amount Remdesivir (Eua) 100 mg 500 In Sodium Chloride 0.9% 250 ml @ 250 mls/hr IVPB Q24H [facility]AM Rx#:[id number] Sodium Chloride 0.9% 1, 160 000 ml @ 20 mls/hr IV . Q24H [facility] Rx#:[id number] Oral 440 600 400 Output: Urine 750 Uretheral (Ordaz) 750 Other: Voiding Method Indwelling Catheter Indwelling Catheter Indwelling Catheter - Exam GENERAL: 10 L high flow nasal cannula HEENT: Pupils are round and equally reacting to light. EOMI. No scleral icterus. No conjunctival pallor. Normocephalic, atraumatic. No pharyngeal erythema. No thyromegaly. CARDIOVASCULAR: S1 and S2 present. No murmurs, rubs, or gallops. PULMONARY: bilateral rhonchi improved compared to yesterday. ABDOMEN: Soft, nontender, nondistended, normoactive bowel sounds. No palpable organomegaly. MUSCULOSKELETAL: No joint swelling or deformity. EXTREMITIES: No cyanosis, clubbing, or pedal edema. NEUROLOGICAL: Gross neurological examination did not reveal any focal deficits. SKIN: No rashes. - Labs CBC & Chem 7: 06/01/20 07:00 06/01/20 07:00 Labs: Abnormal Lab Results - Last 24 Hours (Table) 06/02/20 06/02/20 06/03/20 Range/Units 17:03 20:34 07:11 POC Glucose (mg/dL) 260 H 209 H 105 H (75-99) mg/dL 06/03/20 Range/Units 11:26 POC Glucose (mg/dL) 219 H (75-99) mg/dL Microbiology - Last 24 Hours (Table) 05/28/20 18:10 Blood Culture - Preliminary Blood No Growth after 120 hours Assessment and Plan Assessment: PLAN: Acute hypoxic respiratory failure due to Covid 19 pneumonia, on BiPAP currently on 10 L high flow nasal cannula: Titrate down FiO2 as tolerated -Hypovolemic hyponatremia, sodium normalized -History of PE in the past patient is on Eliquis which will be continued -History of seizure disorder -Hypertension: Resumed on home dose of lisinopril, blood pressure controlled -Asymptomatic bacteriuria No evidence of urinary tract infection she does have abnormal UA but doesn't have any symptoms -Type 2 diabetes mellitus with the diabetic peripheral neuropathy. Patient's blood sugars are expected to be evaluated because of systems treatment sliding scale insulin patient will hypoglycemic agents hold
[2020-06-03 16:34] LABS: Glucose,Whole Blood 286 mg/dL (75-99)
[2020-06-03 19:39] LABS: LD Isoenzymes 1 19 % (19-38); LD Isoenzymes 2 35 % (30-43); LD Isoenzymes 3 23 % (16-26); LD Isoenzymes 4 9 % (3-12); LD Isoenzymes 5 14 % (3-14); Lactacte Dehydrogenase(LD) ISO 288 U/L (120-250)
[2020-06-03 20:44] LABS: Glucose,Whole Blood 301 mg/dL (75-99)
[2020-06-03] MEDS: INSULIN DETEMIR (LEVEMIR) 100 UNIT/ML SYR SQ SCH (21:10)
[2020-06-04 06:58] LABS: Glucose,Whole Blood 114 mg/dL (75-99)
[2020-06-04] MEDS: INSULIN ASPART (NovoLOG) 100 UNIT/ML VIAL SQ SCH ×4 (06:59→22:02)
[2020-06-04] MEDS: DIVALPROEX 500 MG TABLET.DR PO SCH ×2 (07:47→22:01)
[2020-06-04] MEDS: AZITHROMYCIN 500 MG TAB PO SCH (07:47)
[2020-06-04] MEDS: APIXABAN 5 MG TAB PO SCH ×2 (07:47→22:03)
[2020-06-04] MEDS: CHOLECALCIFEROL 400 UNIT TAB PO SCH (07:47)
[2020-06-04] MEDS: METOPROLOL TARTRATE 25 MG TAB PO SCH (07:47)
[2020-06-04] MEDS: ASCORBIC ACID 500 MG TAB PO SCH ×2 (07:47→22:03)
[2020-06-04] MEDS: ZINC SULFATE 220 MG CAP PO SCH (07:47)
[2020-06-04] MEDS: GABAPENTIN 100 MG CAP PO SCH ×3 (07:47→22:03)
[2020-06-04] MEDS: FAMOTIDINE 20 MG TAB PO SCH ×2 (07:48→22:03)
[2020-06-04] MEDS: DEXAMETHASONE SOD PHOSPHATE 10 MG/ML 1 ML VIAL IV SCH (07:48)
[2020-06-04] MEDS: ALBUTEROL HFA INHALER INHALATION SCH ×3 (08:27→16:05)
[2020-06-04 11:24] LABS: Glucose,Whole Blood 233 mg/dL (75-99)
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
[2020-06-04] MEDS: SODIUM CHLORIDE 0.9% 1,000 ML IV SCH (14:26)
--- NOTE | 2020-06-04 15:21 | P.PN ---
Subjective Progress Note Date: 06/04/20 65-year-old male was admitted for Covid 19 pneumonia patient was really status it has worsened and patient is presently on BiPAP with patient is presently on dexamethasone and Remdesevir, patient did not do well or year today in spite of for BiPAP. Patient is DO NOT RESUSCITATE and family doesn't want him to be intubated. Had a lengthy discussion of the family. If his respiratory status worsens plan is to make him comfort care and not to go in the Route of intubation. Family requested that everything to be done to make patient better except for intubation or CPR. Patient ABG showed hypoxic respiratory failure pH is within normal limits. 05/31/2020 Patient is doing marginally well afebrile remains on BiPAP. 06/01/2020 Patient is clinically doing well patient guards and requirements have come down patient is presently on 10 L of oxygen today. Still has some rhonchi bilaterally 06/02/2020 Patient has significant improvement in respiratory status presently on 10 L of oxygen patient had a repeat chest x-ray which is showing bilateral infiltrate in the lower lobes. 06/03/2020 Patient remains on 10 L high flow nasal cannula, saturating in the 90s, does not appear in any acute distress. Continues treatment with REM disappear, his course of Decadron. No fever, hemodynamically stable. 06/04/2020 Patient seen on reevaluation, oxygen requirements down to 7 L nasal cannula saturating in the 90s. Alert, respirations appear unlabored at rest. No fever, hemodynamically stable. Continues in treatment with Decadron, remdisavir, azithromycin he is anticoagulated without requests. Review Of Systems: Constitutional: Denied any fatigue denied any fever. Cardio vascular: denied any chest pain, palpitations Gastrointestinal denied any nausea vomiting Pulmonary: Cough, Neurologic denied any new focal deficits All inpatient medications were reviewed and appropriate changes in these medications as dictated in the interval history and assessment and plan. All inpatient medications were reviewed and appropriate changes in these medications as dictated in the interval history and assement and plan. Objective - Vital Signs Vital signs: Vital Signs Temp 97.5 F L 06/04/20 14:52 Pulse 64 06/04/20 14:52 Resp 19 06/04/20 14:52 BP 126/69 06/04/20 14:52 Pulse Ox 93 L 06/04/20 14:52 Intake & Output 06/03/20 06/04/20 06/04/20 18:59 06:59 18:59 Intake Total 400 Output Total 1050 800 350 Balance -650 -800 -350 Intake: Oral 400 Output: Urine 1050 800 350 Uretheral (Ordaz) 750 Other: Voiding Method Indwelling Catheter Indwelling Catheter Indwelling Catheter - Exam GENERAL: 7high flow nasal cannula HEENT: Pupils are round and equally reacting to light. EOMI. No scleral icterus. No conjunctival pallor. Normocephalic, atraumatic. No pharyngeal erythema. No thyromegaly. CARDIOVASCULAR: S1 and S2 present. No murmurs, rubs, or gallops. PULMONARY: bilateral rhonchi improved compared to yesterday. ABDOMEN: Soft, nontender, nondistended, normoactive bowel sounds. No palpable organomegaly. MUSCULOSKELETAL: No joint swelling or deformity. EXTREMITIES: No cyanosis, clubbing, or pedal edema. NEUROLOGICAL: Gross neurological examination did not reveal any focal deficits. SKIN: No rashes. - Labs CBC & Chem 7: 06/01/20 07:00 06/01/20 07:00 Labs: Abnormal Lab Results - Last 24 Hours (Table) 06/01/20 06/03/20 06/03/20 Range/Units 15:45 16:33 20:42 POC Glucose (mg/dL) 286 H 301 H (75-99) mg/dL LD Isoenzymes 288 H (120-250) U/L 06/04/20 06/04/20 Range/Units 06:57 11:23 POC Glucose (mg/dL) 114 H 233 H (75-99) mg/dL LD Isoenzymes (120-250) U/L Microbiology - Last 24 Hours (Table) 05/28/20 18:10 Blood Culture - Final Blood No Growth after 144 hours Assessment and Plan Assessment: PLAN: Acute hypoxic respiratory failure due to Covid 19 pneumonia, on BiPAP currently on 10 L high flow nasal cannula: Titrate down FiO2 as tolerated -Hypovolemic hyponatremia, sodium normalized -History of PE in the past patient is on Eliquis which will be continued -History of seizure disorder -Hypertension: Resumed on home dose of lisinopril, blood pressure controlled -Asymptomatic bacteriuria No evidence of urinary tract infection she does have abnormal UA but doesn't have any symptoms -Type 2 diabetes mellitus with the diabetic peripheral neuropathy. Patient's blood sugars are expected to be elevated due to corticosteroids, continue sli ding scale coverage -Asymptomatic bradycardia: Decrease metoprolol to 12.5 twice daily, continue to monitor heart rate.
[2020-06-04 16:34] LABS: Glucose,Whole Blood 309 mg/dL (75-99)
[2020-06-04 21:13] LABS: Glucose,Whole Blood 263 mg/dL (75-99)
[2020-06-04] MEDS: INSULIN DETEMIR (LEVEMIR) 100 UNIT/ML SYR SQ SCH (22:02)
[2020-06-04] MEDS: METOPROLOL TARTRATE 12.5 MG TAB PO SCH (22:03)
[2020-06-05 06:58] LABS: Glucose,Whole Blood 81 mg/dL (75-99)
[2020-06-05] MEDS: ALBUTEROL HFA INHALER INHALATION SCH ×3 (07:11→19:45)
[2020-06-05] MEDS: INSULIN ASPART (NovoLOG) 100 UNIT/ML VIAL SQ SCH ×4 (08:12→20:20)
[2020-06-05] MEDS: GABAPENTIN 100 MG CAP PO SCH ×3 (08:17→20:21)
[2020-06-05] MEDS: ZINC SULFATE 220 MG CAP PO SCH (08:17)
[2020-06-05] MEDS: CHOLECALCIFEROL 400 UNIT TAB PO SCH (08:17)
[2020-06-05] MEDS: APIXABAN 5 MG TAB PO SCH ×2 (08:17→20:20)
[2020-06-05] MEDS: ASCORBIC ACID 500 MG TAB PO SCH ×2 (08:17→20:20)
[2020-06-05] MEDS: FAMOTIDINE 20 MG TAB PO SCH ×2 (08:17→20:19)
[2020-06-05] MEDS: AZITHROMYCIN 500 MG TAB PO SCH (08:17)
[2020-06-05] MEDS: DEXAMETHASONE SOD PHOSPHATE 10 MG/ML 1 ML VIAL IV SCH (08:17)
[2020-06-05] MEDS: DIVALPROEX 500 MG TABLET.DR PO SCH ×2 (08:17→20:19)
[2020-06-05] MEDS: METOPROLOL TARTRATE 12.5 MG TAB PO SCH ×2 (08:17→20:20)
[2020-06-05 11:10] LABS: Glucose,Whole Blood 236 mg/dL (75-99)
[2020-06-05 11:52] LABS: HGB 13.2 gm/dL (13.0-17.5); Hypochromasia Slight; MCH 31.1 pg (25.0-35.0); MCHC 32.1 g/dL (31.0-37.0); MCV 96.9 fL (80.0-100.0); Mean Platelet Volume 8.4; Platelet Count 179 k/uL (150-450); RBC 4.23 m/uL (4.30-5.90); RDW 14.8 % (11.5-15.5); WBC 12.9 k/uL (3.8-10.6)
[2020-06-05] MEDS: SODIUM CHLORIDE 0.9% 1,000 ML IV SCH (12:06)
--- NOTE | 2020-06-05 12:10 | XR ---
EXAMINATION TYPE: XR chest 1V DATE OF EXAM: 06/05/2020 COMPARISON: R chest x-ray 06/02/2020 HISTORY: Pneumonia follow-up TECHNIQUE: Single frontal view of the chest is obtained. FINDINGS: Lung volumes are low and the patient is rotated. Lung volumes are low. There are overlying cardiac leads. There is a bandlike area of increased attenuation at the left lung base similar to nida or exam, the left hemidiaphragm partially obscured. The cardiac silhouette size is within normal leon its, stable. The osseous structures are intact, postop changes are noted to the lumbar spine. IMPRESSION: Probable basilar atelectasis, correlate to exclude pneumonia.
[2020-06-05 12:14] LABS: ALT 53 U/L (4-49); AST 55 U/L (17-59); African American GFR (CKD) >90 (>60 ml/min/1.73 sqM); Albumin 2.6 g/dL (3.5-5.0); Alkaline Phosphatase 59 U/L (38-126); Anion Gap 2 mmol/L; Blood Urea Nitrogen 28 mg/dL (9-20); Calcium 8.8 mg/dL (8.4-10.2); Carbon Dioxide 37 mmol/L (22-30); Chloride 107 mmol/L (98-107); Globulin 2.7 g/dL; Glucose 248 mg/dL (74-99); Non-African American GFR(CKD) >90 (>60 ml/min/1.73 sqM); Potassium 4.4 mmol/L (3.5-5.1); Sodium 146 mmol/L (137-145); Total Bilirubin 0.9 mg/dL (0.2-1.3); Total Protein 5.3 g/dL (6.3-8.2)
[2020-06-05 12:22] LABS: Band Neutrophils % 4 %; Lymphocytes # (M) 2.32 k/uL (1.0-4.8); Metamyelocytes # (M) 0.13 k/uL (0); Metamyelocytes % 1 %; Monocytes # (M) 1.29 k/uL (0-1.0); Myelocytes # (M) 0.26 k/uL (0); Myelocytes % 2 %; Neutrophils % (M) 66 %; Nucleated Red Blood Cells 0 /100 WBC (0-0); Total Cells Counted 200
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
--- NOTE | 2020-06-05 15:04 | P.PN ---
Subjective 65-year-old male was admitted for Covid 19 pneumonia patient was really status it has worsened and patient is presently on BiPAP with patient is presently on dexamethasone and Remdesevir, patient did not do well or year today in spite of for BiPAP. Patient is DO NOT RESUSCITATE and family doesn't want him to be intubated. Had a lengthy discussion of the family. If his respiratory status worsens plan is to make him comfort care and not to go in the Route of intubation. Family requested that everything to be done to make patient better except for intubation or CPR. Patient ABG showed hypoxic respiratory failure pH is within normal limits. 05/31/2020 Patient is doing marginally well afebrile remains on BiPAP. 06/01/2020 Patient is clinically doing well patient guards and requirements have come down patient is presently on 10 L of oxygen today. Still has some rhonchi bilaterally 06/02/2020 Patient has significant improvement in respiratory status presently on 10 L of oxygen patient had a repeat chest x-ray which is showing bilateral infiltrate in the lower lobes. 06/05/2020 Patient had improvement and is pretty status but still having fevers patient had a fever today patient was afebrile for last 3-4 days except for today. Patient can use to be on Decadron. Review of systems: Unable to obtain All inpatient medications were reviewed and appropriate changes in these medications as dictated in the interval history and assessment and plan. Objective - Vital Signs Vital signs: Vital Signs Temp 98.4 F 06/05/20 14:05 Pulse 63 06/05/20 14:05 Resp 18 06/05/20 14:05 BP 115/72 06/05/20 14:05 Pulse Ox 97 06/05/20 14:05 Intake & Output 06/04/20 06/05/20 06/05/20 18:59 06:59 18:59 Intake Total 460 400 Output Total 350 725 Balance -350 -265 400 Weight 95 kg Intake: IV 160 Sodium Chloride 0.9% 1, 160 000 ml @ 20 mls/hr IV . Q24H [facility] Rx#:[id number] Oral 300 400 Output: Urine 350 725 Other: Voiding Method Indwelling Catheter Indwelling Catheter Indwelling Catheter - Exam PHYSICAL EXAMINATION: GENERAL: She is on BiPAP response to verbal stimuli HEENT: Pupils are round and equally reacting to light. EOMI. No scleral icterus. No conjunctival pallor. Normocephalic, atraumatic. No pharyngeal erythema. No thyromegaly. CARDIOVASCULAR: S1 and S2 present. No murmurs, rubs, or gallops. PULMONARY: Clear to auscultation. No wheezing or crackles ABDOMEN: Soft, nontender, nondistended, normoactive bowel sounds. No palpable organomegaly. MUSCULOSKELETAL: No joint swelling or deformity. EXTREMITIES: No cyanosis, clubbing, or pedal edema. NEUROLOGICAL: Gross neurological examination did not reveal any focal deficits. SKIN: No rashes. Note: Because of COVID 19 isolation, some of the history and physical exam findings or indirect and obtained from nursing staff, and other physician examinations to avoid unnecessary contact with the patient. - Labs CBC & Chem 7: 06/05/20 11:31 06/05/20 11:31 Labs: Abnormal Lab Results - Last 24 Hours (Table) 06/04/20 06/04/20 06/05/20 Range/Units 16:33 21:12 11:08 WBC (3.8-10.6) k/uL RBC (4.30-5.90) m/uL Neutrophils # (Manual) (1.3-7.7) k/uL Monocytes # (Manual) (0-1.0) k/uL Metamyelocytes # (Man) (0) k/uL Myelocytes # (Manual) (0) k/uL Sodium (137-145) mmol/L Carbon Dioxide (22-30) mmol/L BUN (9-20) mg/dL Glucose (74-99) mg/dL POC Glucose (mg/dL) 309 H 263 H 236 H (75-99) mg/dL ALT (4-49) U/L Total Protein (6.3-8.2) g/dL Albumin (3.5-5.0) g/dL 06/05/20 06/05/20 Range/Units 11:31 11:31 WBC 12.9 H (3.8-10.6) k/uL RBC 4.23 L (4.30-5.90) m/uL Neutrophils # (Manual) 9.00 H (1.3-7.7) k/uL Monocytes # (Manual) 1.29 H (0-1.0) k/uL Metamyelocytes # (Man) 0.13 H (0) k/uL Myelocytes # (Manual) 0.26 H (0) k/uL Sodium 146 H (137-145) mmol/L Carbon Dioxide 37 H (22-30) mmol/L BUN 28 H (9-20) mg/dL Glucose 248 H (74-99) mg/dL POC Glucose (mg/dL) (75-99) mg/dL ALT 53 H (4-49) U/L Total Protein 5.3 L (6.3-8.2) g/dL Albumin 2.6 L (3.5-5.0) g/dL Assessment and Plan Plan: -Acute hypoxic respiratory failure was on BiPAP presently on 4 L of oxygen secondary to Covid 19 pneumonia patient will be continued on steroids and antivi rals as mentioned above. Add fever today. -Hypovolemic hyponatremia resolved -History of PE in the past patient is on Eliquis which will be continued -History of seizure disorder -Hypertension: Lisinopril is being held and blood pressure is within normal limits. -No evidence of urinary tract infection she does have abnormal UA but doesn't have any symptoms -Type 2 diabetes mellitus with the diabetic peripheral neuropathy. Patient's blood sugars are expected to be evaluated because of systems treatment sliding scale insulin patient will hypoglycemic agents hold
[2020-06-05 16:19] LABS: Glucose,Whole Blood 327 mg/dL (75-99)
[2020-06-05 20:09] LABS: Glucose,Whole Blood 305 mg/dL (75-99)
[2020-06-05] MEDS: INSULIN DETEMIR (LEVEMIR) 100 UNIT/ML SYR SQ SCH (20:20)
[2020-06-06] MEDS: ACETAMINOPHEN TAB 325 MG TAB PO PRN ×2 (02:16→09:21)
[2020-06-06 06:55] LABS: Glucose,Whole Blood 53 mg/dL (75-99)
[2020-06-06] MEDS: INSULIN ASPART (NovoLOG) 100 UNIT/ML VIAL SQ SCH ×3 (07:10→17:10)
[2020-06-06 07:13] LABS: Glucose,Whole Blood 51 mg/dL (75-99)
[2020-06-06 07:50] LABS: Glucose,Whole Blood 67 mg/dL (75-99)
[2020-06-06 07:50] LABS: Glucose,Whole Blood 69 mg/dL (75-99)
[2020-06-06 07:57] LABS: Glucose,Whole Blood 71 mg/dL (75-99)
[2020-06-06] MEDS: ALBUTEROL HFA INHALER INHALATION SCH ×2 (08:47→12:17)
[2020-06-06] MEDS: DEXAMETHASONE SOD PHOSPHATE 10 MG/ML 1 ML VIAL IV SCH (09:19)
[2020-06-06] MEDS: DIVALPROEX 500 MG TABLET.DR PO SCH (09:19)
[2020-06-06] MEDS: APIXABAN 5 MG TAB PO SCH (09:20)
[2020-06-06] MEDS: CHOLECALCIFEROL 400 UNIT TAB PO SCH (09:20)
[2020-06-06] MEDS: GABAPENTIN 100 MG CAP PO SCH ×2 (09:20→15:02)
[2020-06-06] MEDS: ASCORBIC ACID 500 MG TAB PO SCH (09:20)
[2020-06-06] MEDS: FAMOTIDINE 20 MG TAB PO SCH (09:20)
[2020-06-06] MEDS: ZINC SULFATE 220 MG CAP PO SCH (09:21)
[2020-06-06] MEDS: METOPROLOL TARTRATE 12.5 MG TAB PO SCH (09:21)
[2020-06-06 09:49] LABS: Glucose,Whole Blood 89 mg/dL (75-99)
[2020-06-06 11:57] LABS: Glucose,Whole Blood 136 mg/dL (75-99)
[2020-06-06 12:12] LABS: C Reactive Protein 86.4 mg/L (<10.0)
[2020-06-06 12:24] LABS: Appearance,Urine Cloudy (Clear); Bilirubin,Urine Negative (Negative); Blood,Urine Large (Negative); Color,Urine Light Red; Glucose,Urine (UA) Negative (Negative); Ketones,Urine 1+ (Negative); Leukocyte Esterase,Urine Trace (Negative); Mucus,Urine Rare /hpf; Nitrite,Urine Negative (Negative); Protein,Urine 1+ (Negative); RBC,Urine >182 /hpf (0-5); Specific Gravity,Urine 1.033 (1.001-1.035); WBC,Urine 16 /hpf (0-5)
--- NOTE | 2020-06-06 14:18 | P.DS ---
Providers Date of admission: 05/28/20 14:52 Attending physician: Bakari Macdonald Consults: 05/28/20 15:33 Consult Physician Routine Consulting Provider: Nabila Urias Consult Reason/Comments: pneumonia Do you want consulting provider notified?: Yes Consult Physician Routine Consulting Provider: Chloe Swain Consult Reason/Comments: pneumonia Do you want consulting provider notified?: Yes Primary care physician: Bakari Macdonald Hospital Course: 65-year-old male was admitted for Covid 19 pneumonia patient was really status it has worsened and patient is presently on BiPAP with patient is presently on dexamethasone and Remdesevir, patient did not do well or year today in spite of for BiPAP. Patient is DO NOT RESUSCITATE and family doesn't want him to be intubated. Had a lengthy discussion of the family. If his respiratory status worsens plan is to make him comfort care and not to go in the Route of intubation. Family requested that everything to be done to make patient better except for intubation or CPR. Patient ABG showed hypoxic respiratory failure pH is within normal limits. 05/31/2020 Patient is doing marginally well afebrile remains on BiPAP. 06/01/2020 Patient is clinically doing well patient guards and requirements have come down patient is presently on 10 L of oxygen today. Still has some rhonchi bilaterally 06/02/2020 Patient has significant improvement in respiratory status presently on 10 L of oxygen patient had a repeat chest x-ray which is showing bilateral infiltrate in the lower lobes. 06/05/2020 Patient had improvement and is pretty status but still having fevers patient had a fever today patient was afebrile for last 3-4 days except for today. Patient can use to be on Decadron. 06/06/2020 Patient can use to have low-grade fevers. After he was treated for Covid 19 with the steroids and Remdesevir his fevers resolved started having low-grade fevers yesterday chest x-ray showing atelectasis may be contributing to his fever although I cannot completely rule out secondary bacterial pneumonia because of which I'll give him a dose of Rocephin here and patient will be discharged on a few more days of Ceftin. His d-dimer is within normal limits LDH is little bit elevated. PHYSICAL EXAMINATION: GENERAL: The patient is alert mostly nonverbal, not in any acute distress. Well developed, well nourished. HEENT: Pupils are round and equally reacting to light. EOMI. No scleral icterus. No conjunctival pallor. Normocephalic, atraumatic. No pharyngeal erythema. No thyromegaly. CARDIOVASCULAR: S1 and S2 present. No murmurs, rubs, or gallops. PULMONARY: Bilateral rhonchi mild ABDOMEN: Soft, nontender, nondistended, normoactive bowel sounds. No palpable organomegaly. MUSCULOSKELETAL: No joint swelling or deformity. EXTREMITIES: No cyanosis, clubbing, or pedal edema. NEUROLOGICAL: Unable to assess SKIN: No rashes. Assessment and Plan Plan: -Acute hypoxic respiratory failure was on BiPAP presently on 4 L of oxygen , we'll cut down the arms and to 2 L as he is saturating 90% on 4 L of oxygen, hypoxemia secondary to Covid 19 pneumonia . Patient will be discharged on 3 more days of Decadron and completed a course of Remdesevir - low-grade fever yesterday and today: UA significantly abnormal, chest x-ray showed atelectasis. A couple possibilities for his low-grade fever 1 secondary bacterial pneumonia which I cannot completely rule out or may be related to just atelectasis patient will be discharged on Ceftin was given a dose of Rocephin patient's Ordaz catheter will be removed as this can be the source of infection. -Hypovolemic hyponatremia resolved -History of PE in the past patient is on Eliquis which will be continued -History of seizure disorder -Hypertension: Lisinopril is being held and blood pressure is within normal limits. -Type 2 diabetes mellitus with the diabetic peripheral neuropathy. His blood pressures were low in spite of for systemic steroids here. Patient is on couple oral hypoglycemic agents which are being discontinued and patient was also on 10 units of Lantus which is also being discontinued and patient will be discharged only on sliding scale insulin may not even need this once he is off the steroids. Plan - Discharge Summary Discharge Rx Participant: No New Discharge Prescriptions: New Cefuroxime Axetil [Ceftin] 500 mg PO BID 6 Days #12 tab Famotidine [Pepcid] 20 mg PO BID #20 tab INSULIN LISPRO (humaLOG) [humaLOG] 1 injection SQ DIRECTED #10 ml Continue lisinopriL 20 mg PO DAILY@0700 Metoprolol Tartrate 25 mg PO BID@0700,2100 Gabapentin [Neurontin] 100 mg PO TID@0700,1300,2100 Acetaminophen Tab [Tylenol] 650 mg PO Q4H PRN PRN Reason: Pain Divalproex [Depakote] 1,500 mg PO BID@0700,2100 Apixaban [Eliquis] 5 mg PO BID@0700,1700 bisacodyL [Dulcolax] 10 mg RECTAL DAILY PRN PRN Reason: Constipation Discontinued metFORMIN HCL 1,000 mg PO BID@0700,1700 Insulin Glargine,Hum.rec.anlog [Lantus Solostar] 10 unit SQ HS@2100 Pioglitazone [Actos] 30 mg PO DAILY@0700 INSULIN LISPRO (humaLOG) [humaLOG] 2 units SQ AC-TID Discharge Medication List Gabapentin [Neurontin] 100 mg PO TID@0700,1300,2100 07/14/18 [History] Metoprolol Tartrate 25 mg PO BID@0700,2100 07/14/18 [History] lisinopriL 20 mg PO DAILY@0700 07/14/18 [History] Acetaminophen Tab [Tylenol] 650 mg PO Q4H PRN 09/03/19 [History] Divalproex [Depakote] 1,500 mg PO BID@0700,2100 09/03/19 [History] Apixaban [Eliquis] 5 mg PO BID@0700,1700 05/28/20 [History] bisacodyL [Dulcolax] 10 mg RECTAL DAILY PRN 05/28/20 [History] Cefuroxime Axetil [Ceftin] 500 mg PO BID 6 Days #12 tab 06/06/20 [Rx] Famotidine [Pepcid] 20 mg PO BID #20 tab 06/06/20 [Rx] INSULIN LISPRO (humaLOG) [humaLOG] 1 injection SQ DIRECTED #10 ml 06/06/20 [Rx] Patient Instructions/Handouts: Viral Pneumonia (DC), SARS (Severe Acute Respiratory Syndrome) (DC) Discharge Disposition: TRANSFER TO SNF/F
[2020-06-06 14:31] VITALS: BP 124/77; PULSE 62; RESP 22; TEMP 98.9
[2020-06-06] MEDS: SODIUM CHLORIDE 0.9% 1,000 ML IV SCH (15:02)
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
[2020-06-06 16:48] LABS: Glucose,Whole Blood 160 mg/dL (75-99)
[2020-06-07 01:41] LABS: LD Isoenzymes 1 19 % (19-38); LD Isoenzymes 2 31 % (30-43); LD Isoenzymes 3 22 % (16-26); LD Isoenzymes 4 11 % (3-12); LD Isoenzymes 5 17 % (3-14); Lactacte Dehydrogenase(LD) ISO 328 U/L (120-250)
== END 2020-06-06 17:59 | DRG 177 ==
LOC: EEVIPCON → 4SSUR 14:52
PROVIDERS: ADMIT Hospitalist; ATTEND Hospitalist
DX: U07.1 COVID-19 (principal); J96.01 Acute respiratory failure with hypoxia; J69.0 Pneumonitis due to inhalation of food and vomit; J12.89 Other viral pneumonia; J15.9 Unspecified bacterial pneumonia; J98.11 Atelectasis; N39.0 Urinary tract infection, site not specified; E87.1 Hypo-osmolality and hyponatremia; G82.20 Paraplegia, unspecified; K59.09 Other constipation; M19.90 Unspecified osteoarthritis, unspecified site; Z66 Do not resuscitate; Z68.32 Body mass index [BMI] 32.0-32.9, adult; D69.6 Thrombocytopenia, unspecified; E11.42 Type 2 diabetes mellitus with diabetic polyneuropathy; E66.9 Obesity, unspecified; E86.1 Hypovolemia; F41.9 Anxiety disorder, unspecified; G40.909 Epilepsy, unspecified, not intractable, without status epilepticus; I10 Essential (primary) hypertension; I25.10 Atherosclerotic heart disease of native coronary artery without angina pectoris; S06.9X0S Unspecified intracranial injury without loss of consciousness, sequela; V49.9XXS Car occupant (driver) (passenger) injured in unspecified traffic accident, sequela; Z79.01 Long term (current) use of anticoagulants; Z79.4 Long term (current) use of insulin; Z79.899 Other long term (current) drug therapy; Z82.49 Family history of ischemic heart disease and other diseases of the circulatory system; Z83.3 Family history of diabetes mellitus; Z84.1 Family history of disorders of kidney and ureter; Z86.14 Personal history of Methicillin resistant Staphylococcus aureus infection; Z86.711 Personal history of pulmonary embolism; Z86.718 Personal history of other venous thrombosis and embolism
CPT/HCPCS: 36600; 71045; 71250; 80048; 80053; 81001; 82550; 82805; 83036; 83605; 83615; 83625; 83735; 84145; 84484; 85025; 85027; 85379; 85652; 86140; 87040; 87086; 94640; 94660; 94760